=== PATIENT | male | born 1990 | race Two or more races ===

== ENCOUNTER 2022-02-02 05:36 | Day surgery (SDC) | payer OTHER ==
[~2022-02-02] VITALS: Ht 182.9 cm; Wt 127.5 kg
[2022-02-02] MEDS ORDERED: COLACE100 MG PO (08:13)
[2022-02-02] MEDS ORDERED: NEURONTIN300 MG PO (08:13)
[2022-02-02] MEDS ORDERED: PERCOCET 5-3251 EACH PO (08:13)
== END 2022-02-02 12:30 | disposition home or self-care (01) ==
LOC: CIR.AMB 05:36
PROVIDERS: ATTEND Surgery
DX: K60.3 Anal fistula (principal); K62.89 Other specified diseases of anus and rectum; Z20.822 Contact with and (suspected) exposure to COVID-19